=== PATIENT | male | born 1950 | race Caucasian/White ===

== ENCOUNTER → 2024-09-06 | Outpatient (CLI) | payer MEDICARE, SELFPAY ==
--- NOTE | 2024-09-06 15:19 | DI.US.S_ITS ---
PROCEDURE: US ARTERIAL DUPLEX LE BI INDICATIONS: PVD TECHNIQUE: Color and pulse Doppler interrogation was performed of both lower extremity arterial systems, with image documentation. COMPARISON: None. FINDINGS: Right lower extremity: Common femoral artery: 124 cm/sec, with triphasic flow. Deep femoral artery: 138 cm/sec, with triphasic flow. Proximal superficial femoral artery: 101 cm/sec, with biphasic flow. Mid superficial femoral artery: 116 cm/sec, with biphasic flow. Distal superficial femoral artery: 183 cm/sec, with monophasic flow. Popliteal artery: 152 cm/sec, with monophasic flow. Posterior tibial artery: 109 cm/sec, with monophasic flow. Anterior tibial artery/dorsalis pedis: 71 cm/sec, with monophasic flow. Franz-scale imaging description: Multifocal plaque formation Left lower extremity: Common femoral artery: 147 cm/sec, with triphasic flow. Deep femoral artery: 148 cm/sec, with biphasic flow. Proximal superficial femoral artery: 172 cm/sec, with biphasic flow. Mid superficial femoral artery: 85 cm/sec, with monophasic flow. Distal superficial femoral artery: 241 cm/sec, with monophasic flow. Popliteal artery: 94 cm/sec, with monophasic flow. Posterior tibial artery: 94 cm/sec, with monophasic flow. Anterior tibial artery/dorsalis pedis: 128 cm/sec, with monophasic flow. Franz-scale imaging description: Multifocal plaque formation worst in the distal superficial femoral artery and above knee popliteal artery. IMPRESSION: 1. No evidence of aortoiliac inflow disease bilaterally. 2. 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 3. Bilateral diseased runoff, patent. Further evaluation with CT angiography/MR angiography as clinically indicated. Dictated by: Thomas Henson M.D. on 09/06/2024 at 16:58 Approved by: Thomas Henson M.D. on 09/06/2024 at 17:03
== END ==
LOC: US 15:18
PROVIDERS: PCP Family Medicine; Referring Provider Family Medicine; Visit Provider Family Medicine
DX: I70.202 Unspecified atherosclerosis of native arteries of extremities, left leg (principal); I70.201 Unspecified atherosclerosis of native arteries of extremities, right leg
CPT/HCPCS: 93925